=== PATIENT | male | born 1970 | race Caucasian/White ===

== ENCOUNTER 2018-10-03 07:47 | Inpatient (IN) ==
[2018-10-03] MEDS ORDERED: CARDIZEM IV ONE (08:22)
[2018-10-03] MEDS ORDERED: CARDIZEM 100 MG/NS 100 MG/100 ML IVPB IV SCH (08:30)
[2018-10-03 08:38] LABS: BASO# 0.03 X1000 (0.0-0.2); BASO% 0.3 % (0.0-0.8); EOS# 0.02 X1000 (0.0-0.7); EOS% 0.2 % (0.0-10.0); HEMATOCRIT 49.3 % (42.0-52.0); HEMOGLOBIN 17.1 g/dL (14.0-18.0); IMM GRAN# 0.02 X1000 (0.0-0.04); IMM GRAN% 0.2 % (0.0-0.5); LYMPH# 1.54 X1000 (1.2-3.4); LYMPH% 14.9 % (20.5-51.1); MCH 30.8 PG (27-31); MCHC 34.7 g/dL (33-37); MCV 88.7 FL (81-99); MONO# 0.66 X1000 (0.11-0.59); MONO% 6.4 % (1.7-9.3); MPV 9.8 FL (7.4-10.4); NEUT# 8.04 X1000 (1.4-6.5); PLT 308 X1000 (130-400); RBC 5.56 XMIL (4.7-6.1); RDW 12.9 % (11.5-14.5); WBC 10.31 X1000 (4.8-10.8)
[2018-10-03 08:44] LABS: INR 0.93; PROTIME 13.2 Seconds (11.0-16.0); PTT 31.3 Seconds (22.3-41.8)
--- NOTE | 2018-10-03 08:44 | Diag Imaging Result Doc PS360 ---
CHEST-1 VIEW - 10/03/2018 INDICATION: SOB COMPARISON: 10/01/2015 FINDINGS: The lungs are clear. Heart size is normal. No pneumothorax or pleural effusion. IMPRESSION: Negative exam. Electronically signed by Edil Cleary 10/03/2018 8:42 AM
[2018-10-03 08:47] LABS: AGAP 15; ALB/GLOB RATIO 1.1; ALBUMIN 4.3 g/dL (3.5-5.0); ALKALINE PHOSPHATASE 127 U/L (32-122); BUN 15 mg/dL (8-22); CALCIUM 9.7 mg/dL (8.8-10.2); CHLORIDE 101 mmol/L (98-107); CK PROFILE 152 U/L (24-204); COSMO 282; CREATININE 0.7 mg/dL (0.7-1.2); ESTIMATED GFR > 60; GLUCOSE 138 mg/dL (70-104); GOT 17 U/L (10-34); GPT 13 U/L (10-44); POTASSIUM 3.8 mmol/L (3.5-5.1); SODIUM 140 mmol/L (136-145); TCO2 24 mmol/L (25-35); TOTAL BILIRUBIN 0.42 mg/dL (0.20-1.00); TOTAL PROTEIN 8.2 g/dL (6.3-8.3)
[2018-10-03] MEDS ORDERED: CARDIZEM 125 MG in NS 100 ML IV SCH (08:52)
--- NOTE | 2018-10-03 09:05 | PROVIDER DOCUMENTATION ---
HPI-General Adult - General Chief Complaint: Shortness of Breath Stated Complaint: SOB,NEAR SYNCOPE Time Seen by Provider: 10/03/18 08:09 Source: patient Allergies/Adverse Reactions: Patient Allergies Allergy/AdvReac Type Severity Reaction Status Date / Time No Known Allergies Allergy Verified 10/03/18 08:32 - History of Present Illness -Gen Adult Nature of Presenting Problems: The patient was at work this morning when he got very sob and thought he was going to pass out. Location of Pain/Injury: reports: chest (mild pain in his chest with sob) Pain Radiation: reports: no radiation Quality of Pain: reports: fullness, pressure, tightness Severity: reports: mild Onset/Duration: reports: just prior to arrival Timing: reports: still present Context/Activities at Onset: reports: moderate activity Modifying Factors: improves with: nothing. worse with: exercise, movement Associated Symptoms: reports: anxiety, chest pain, dizziness, nausea, shortness of breath, syncope (near). denies: arm pain, back/neck pain, constipation, diaphoresis, diarrhea, fever/chills, sinus congestion/drainage, pain with inspiration, swelling/mass in abdomen, vomiting Similar Symptoms Previously?: No Recently seen or treated by another doctor?: No Review of Systems - Adult - REVIEW OF SYSTEMS - ADULT Constitutional: reports: no symptoms reported Eyes: reports: no symptoms reported Ears, Nose, Mouth & Throat: reports: no symptoms reported Cardiovascular: reports: chest pain, palpitations Respiratory: reports: shortness of breath Gastrointestinal: reports: no symptoms reported Genitourinary: reports: no symptoms reported Musculoskeletal: reports: no symptoms reported Integumentary: reports: no symptoms reported Neurological: reports: no symptoms reported Psychiatric: reports: no symptoms reported Endocrine: reports: no symptoms reported Hematologic/Lymphatic: reports: no symptoms reported Allergic/Immunologic: reports: no symptoms reported All Other Systems: Reviewed and Negative Past History - Adult - PAST MEDICAL HISTORY-ADULT Review of Records: reports: Old Records Reviewed Major Childhood Illnesses: reports: denies history Cardiovascular: reports: A-Fib, HTN Respiratory: reports: denies history Gastrointestinal: reports: denies history Obstetrical/Gynecological: reports: denies history Genitourinary: reports: denies history Musculoskeletal: reports: chronic pain Neurological: reports: Seizures/Epilepsy Endocrine/Immune: reports: denies history Other Conditions: reports: denies history - PRIOR SURGERIES/PROCEDURES Surgical/Procedure History: reports: none - PRIOR HOSPITALIZATIONS Prior Hospitalizations: reports: none - IMMUNIZATION STATUS Childhood Immunizations: See Nurse Assessment Flu Vaccine: See Nurse Assessment - FAMILY HISTORY Family History: reviewed, not pertinent - SOCIAL HISTORY Smoking: cigarettes Physical Exam-General - PHYSICAL EXAM-ADULT Initial Vital Signs Reviewed: Yes - CONSTITUTIONAL General Appearance: alert, mild distress - HEAD, EARS, NOSE, MOUTH & THROAT HENMT: normocephalic/atraumatic - NECK Neck: supple - RESPIRATORY Respiratory: chest non-tender, lungs clear - CARDIOVASCULAR Cardiovascular: tachycardia, irregularly irregular - GASTROINTESTINAL (ABDOMEN) Abdominal Exam: non tender, soft, no organomegaly - MUSCULOSKELETAL Back Exam: normal inspection Extremity: no pedal edema - SKIN Integumentary: normal color, normal turgor - NEUROLOGIC Neurologic: grossly normal - PSYCHIATRIC Psych/Mental Status: oriented x 3 Progress - PLAN OF CARE/RESULTS Progress/Plan/Lab Results: Vital Signs - 8 hr 10/03/18 07:56 Temperature 97.5 F L Pulse Rate 121 H Respiratory Rate 25 H Blood Pressure 132/84 O2 Sat by Pulse Oximetry 97 Laboratory Results - last 24 hr 10/03/18 10/03/18 10/03/18 08:15 08:15 08:15 WBC 10.31 RBC 5.56 Hgb 17.1 Hct 49.3 MCV 88.7 MCH 30.8 MCHC 34.7 RDW Std Deviation 12.9 Plt Count 308 MPV 9.8 Immature Gran % (Auto) 0.2 Neut % (Auto) 78.0 H Lymph % (Auto) 14.9 L Coffey % (Auto) 6.4 Eos % (Auto) 0.2 Baso % (Auto) 0.3 Immature Gran # (Auto) 0.02 Neut # (Auto) 8.04 H Lymph # (Auto) 1.54 Coffey # (Auto) 0.66 H Eos # (Auto) 0.02 Baso # (Auto) 0.03 PT 13.2 INR 0.93 PTT (Actin FS) 31.3 Sodium 140 Potassium 3.8 Chloride 101 Carbon Dioxide 24 L Anion Gap 15 BUN 15 Creatinine 0.7 Estimated GFR/1.73 m2 > 60 BUN/Creatinine Ratio 21 Glucose 138 H Calculated Osmolality 282 Calcium 9.7 Total Bilirubin 0.42 AST 17 ALT 13 Alkaline Phosphatase 127 H Creatine Kinase 152 Troponin T Total Protein 8.2 Albumin 4.3 Globulin 3.9 Albumin/Globulin Ratio 1.1 10/03/18 08:15 WBC RBC Hgb Hct MCV MCH MCHC RDW Std Deviation Plt Count MPV Immature Gran % (Auto) Neut % (Auto) Lymph % (Auto) Coffey % (Auto) Eos % (Auto) Baso % (Auto) Immature Gran # (Auto) Neut # (Auto) Lymph # (Auto) Coffey # (Auto) Eos # (Auto) Baso # (Auto) PT INR PTT (Actin FS) Sodium Potassium Chloride Carbon Dioxide Anion Gap BUN Creatinine Estimated GFR/1.73 m2 BUN/Creatinine Ratio Glucose Calculated Osmolality Calcium Total Bilirubin AST ALT Alkaline Phosphatase Creatine Kinase Troponin T < 0.010 Total Protein Albumin Globulin Albumin/Globulin Ratio Orders Category Date Time Status Cardiac Monitoring DIRECTED Care 10/03/18 08:17 Active IV Insertion ORDERED Care 10/03/18 08:17 Completed If abnormal EKG, order: NOW Care 10/03/18 08:15 Active Notify MD of + Sepsis Screen NOW Care 10/03/18 08:17 Active Notify Physician As Ordered Care 10/03/18 08:17 Active CHEST-1 VIEW [RAD] Stat Exams 10/03/18 08:17 Completed BLOOD CULTURE [BLDCUL] Stat Lab 10/03/18 08:59 Ordered CBC WITH DIFF [HEME] Stat Lab 10/03/18 08:15 Completed CMP [COMPREHENSIVE METABOLIC PANEL] [CHEM] Stat Lab 10/03/18 08:15 Completed Cardiac Profile [CK PROFILE] [SP CHEM] Stat Lab 10/03/18 08:15 Completed LACTATE, PLASMA [CHEM] Lab 10/03/18 08:59 Ordered LACTATE, PLASMA [CHEM] Lab 10/03/18 11:30 Uncollected LACTATE, PLASMA [CHEM] Lab 10/03/18 14:30 Uncollected PROTIME WITH INR [COAG] Stat Lab 10/03/18 08:15 Completed PTT [COAG] Stat Lab 10/03/18 08:15 Completed TROPONIN T Stat Lab 10/03/18 08:15 Completed URINALYSIS W/POSS RFLX CULT [URINALYSIS] Stat Lab 10/03/18 08:17 Uncollected 0.9% Sodium Chloride Inj [Ns] 100 ml Med 10/03/18 08:52 Active Diltiazem [Cardizem] 125 mg IV As Directed mls/hr Diltiazem [Cardizem] Med 10/03/18 08:22 Discontinued 20 mg IV NOW ONE CP/Palp <45 No Known Cardiac Hx Stat Oth 10/03/18 08:14 Ordered Oxygen Device Stat Oth 10/03/18 08:17 Active EKG [EKG] Stat Ther 10/03/18 08:15 Ordered Result Diagrams: 10/03/18 08:15 10/03/18 08:15 - EKG 1 Time of EKG reading by physician:: 08:09 EKG Read and Signed by:: Ana Oliveira EKG Interpretation (*Must complete 3 of following elements*): Abnormal Rate: 148 Rhythm: a-fib [place]: normal - CONSULTS/PCP/HOSPITALIST Notification #1 *Consult/PCP/Hospitalist*: [place] Time Discussed: 09:37 Consult Disposition: Admit Departure - Departure Date of Disposition Decision: 10/03/18 Time of Disposition Decision: 09:35 DIAGNOSIS: New onset atrial fibrillation Disposition: ADMITTED INPATIENT 09 Certified Medical Emergency: Emergent Condition: Good Referrals and Follow-Ups: None,PCP [Primary Care Provider] - - Critical Care Note This patient required my direct & personal management of CC.: No Attestation - Physician/ VIVIAN Attestation The physician spent face to face time with patient:: Yes Advanced Practice Provider documentation review:: Supervising physician onsite and consulted in the evaluation and care of this patient. The physician did have a face to face encounter with the patient.
--- NOTE | 2018-10-03 09:05 | EKG Report ---
Test Performed on : 10/03/2018 08:08:59 AM Test Reason : tachycardia Blood Pressure : / mmHG Vent. Rate : 148 BPM Atrial Rate : 159 BPM P-R Int : 000 ms QRS Dur : 064 ms QT Int : 300 ms P-R-T Axes : 000 024 050 degrees QTc Int : 471 ms Atrial fibrillation. with rapid ventricular response. Abnormal ECG When compared with ECG of 01-OCT-2015 01:16, Atrial fibrillation. has replaced Sinus rhythm. Vent. rate has increased BY 74 BPM Unconfirmed Result
[2018-10-03 09:17] LABS: URINE SOURCE CLEAN CATCH
[2018-10-03 09:40] LABS: BILIRUBIN URINE SMALL (NEGATIVE); BLOOD URINE NEGATIVE (NEGATIVE); COLOR YELLOW; GLUCOSE URINE NEGATIVE (NEGATIVE); KETONE URINE 10 mg/dL (NEGATIVE); LEUKOCYTES URINE NEGATIVE (NEGATIVE); NITRITE URINE NEGATIVE (NEGATIVE); PH URINE 6.5; PROTEIN URINE 70 mg/dL (NEGATIVE); SP GRAVITY URINE 1.023; TURBIDITY URINE CLEAR (CLEAR); UROBILINOGEN URINE 4 mg/dL (NORMAL)
[2018-10-03 09:41] LABS: UR EPITHELIAL CELLS <10 /HPF (<10); URINE BACTERIA NEGATIVE /HPF; URINE RBC <10 /HPF (<10); URINE WBC <10 /HPF (<10)
[2018-10-03] MEDS ORDERED: LANOXIN IV ONE ×2 (10:25→12:30)
[2018-10-03] MEDS ORDERED: TYLENOL PO PRN (10:41)
[2018-10-03] MEDS ORDERED: ZOFRAN IV PRN (10:41)
[2018-10-03] MEDS ORDERED: LOVENOX SUBQ SCH ×2 (10:41→11:15)
--- NOTE | 2018-10-03 11:14 | HISTORY AND PHYSICAL ---
PRIMARY CARE PROVIDER: None. GROUP FITNESS DEPARTMENT HEAD: None. CHIEF COMPLAINT: Shortness of breath, heart racing and dizziness. HISTORY OF PRESENT ILLNESS: Mr. Coates is a 48-year-old male who has carried a past medical history of syncope (2014). We do have unclear documentation of atrial fibrillation prior, however, the patient adamantly denies, GERD as well an admission for a spice overdose back in 2014. 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 He felt his heart racing and whenever he would bend over and stand up, he felt dizzy. He thought he would come to the ED, get a breathing treatment and found that he was in atrial fibrillation with RVR. He was given a Cardizem bolus and placed on a Cardizem drip. He denies any chest pain, any previous episodes of feeling like this. No nausea, vomiting, diarrhea, fever, chills, cough, headache. He also recently reported that he lost his sister and his niece on the way to the in a car crash. Her today is at 15:30. Initially, he was hesitant to stay and after speaking with him, he is going to stay for now. We will go ahead and consult Cardiology and admit him to [facility], continue Cardizem drip. Will do a now dose of digoxin and another dose in 2 hours. PAST MEDICAL HISTORY: 1. Admission back in 2014 for syncope, questionable atrial fibrillation, however, there were no documented findings. 2. Gastroesophageal reflux disease. 3. Spice overdose in the past. PAST SURGICAL HISTORY: Denies. 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 He does smoke cigarettes. Denies any illicit drug use or alcohol. FAMILY HISTORY: Mother and father with coronary artery disease. ALLERGIES: No known drug allergies. HOME MEDICATIONS: None. REVIEW OF SYSTEMS: A 10 point review of systems completely negative except for those mentioned in HPI. PHYSICAL EXAMINATION: VITAL SIGNS: Temperature is 97.5 degrees, heart rate 147, respirations 20, blood pressure 97/76, O2 is 96% on room air. GENERAL: Mr. Coates is a 48-year-old male who is lying in the bed in no acute distress. HEENT: Atraumatic, normocephalic. PERRL. NECK: Supple. Trachea midline. CV: Irregularly irregular. No murmurs, gallops, or rubs noted. RESPIRATORY: Lung sounds clear. He does have bilateral crackles in the bases. ABDOMEN: Soft, nontender, nondistended. Positive bowel sounds 4 quadrants. EXTREMITIES: Negative for edema. NEUROLOGIC: No focal deficits noted. DIAGNOSTIC DATA: EKG shows atrial fibrillation with RVR at 148 beats per minute. Chest x-ray was a negative exam. CBC unremarkable. CMP essentially unremarkable. Urinalysis was negative for bacteria, negative for leukocytes, negative for ketones. He did have 70 urine protein, small bilirubin. ASSESSMENT AND PLAN: 1. Atrial fibrillation with rapid ventricular response, questionable whether this is new onset. The patient reports no previous history. Never seen a tableau report developer. He was placed on a Cardizem drip with bolus. We will admit him to [facility]. Consult Cardiology. Check an echocardiogram. We will do 250 mcg of digoxin now and in 2 hours. Await cardiology's recommendations. Go ahead and check a proBNP. 2. Polysubstance abuse in the past. We will go ahead and check a urine drug screen. 3. Recent stressors. The patient lost a sister recently as well as a niece who was on the way to the . Her is today at 15:30. For now, he has decided to stay, however, he is still hesitant. 4. Further recommendations to follow physician evaluation, laboratory and diagnostic data. Dictated by [facility] [place] for Kait Monteiro MD cc: MD Jeremias Keith MD [facility]
[2018-10-03 11:17] LABS: UR AMPHETAMINES QUAL NONE DETECTED (NONE DETECT); UR BARBITUATES QUAL NONE DETECTED (NONE DETECT); UR BENZODIAZEPIN QUAL NONE DETECTED (NONE DETECT); UR CANNABINOIDS QUAL NONE DETECTED (NONE DETECT); UR COCAINE QUAL NONE DETECTED (NONE DETECT); UR METHADONE QUAL NONE DETECTED (NONE DETECT); UR OPIATES QUAL NONE DETECTED (NONE DETECT); UR OXYCODONE QUAL NONE DETECTED (NONE DETECT); UR PCP QUAL NONE DETECTED (NONE DETECT)
[2018-10-03] MEDS ORDERED: ELIQUIS PO ONE (11:24)
[2018-10-03] MEDS ORDERED: LOPRESSOR PO ONE (11:24)
--- NOTE | 2018-10-03 12:04 | CARDIOLOGY CONSULTATION ---
DATE: 10/03/2018 INDICATION: Atrial fibrillation with rapid ventricular response. HISTORY OF PRESENT ILLNESS: Mr. Coates is a 48-year-old gentleman who presented with shortness of breath. He reported this began at some point this morning. He is not aware of it happening earlier. He has not had any chest pain. He denies any overt palpitations. He is not having any orthopnea. He has no past medical history that he is aware of. He smokes a pack to a pack and half of cigarettes a day. PAST MEDICAL HISTORY: None that the patient is aware of. 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 He does smoke one to one and a half packs per day. FAMILY HISTORY: Significant for hypertension. REVIEW OF SYSTEMS: A 10 system review of systems is negative except for those things mentioned in the HPI. PHYSICAL EXAMINATION: Vital Signs: He is afebrile. Heart rate is in the 120s to 140s. His blood pressure is 101/79. General: He is no acute distress. HEENT: Oropharynx is moist. Poor dentition. Eye examination shows pink conjunctivae and white sclerae. Neck: Examination shows no obvious thyromegaly or thyroid tenderness. Cardiovascular: He sounds to be in an irregularly irregular tachycardic rhythm. He has no murmurs. He has no S3. He has no lower extremity edema. Chest: Examination has coarse breath sounds somewhat diffusely. No increased work of breathing. Abdomen: Soft, nontender, nondistended. He has no obvious organomegaly. Skin Examination: Warm and dry throughout, without any rashes. Neurological: He is moving all extremities well. He has no lateralizing deficits. PERTINENT DATA: His chest x-ray shows no evidence of acute abnormalities. His electrocardiogram shows what appears to be atrial fibrillation, rapid ventricular response. His rate on presentation was 148. His telemetry shows the same. His lab data shows a white count of 10.3, hematocrit 49, platelet count 308,000. His INR is 0.9. His sodium is 140, potassium is 3.8, BUN 15, creatinine 0.7. ProBNP is 119. Cardiac enzymes are negative. ASSESSMENT: Mr. Coates is a 48-year-old gentleman with no previous medical history, who presents with new onset atrial fibrillation. PLAN: The patient will not stay for further evaluations. We will try to set him up for an outpatient CAL, cardioversion tomorrow. I will give him a one time dose of 50 mg of metoprolol now as well as 5 mg of Eliquis. I will have him go over to my office for samples of the Eliquis and we will place him on metoprolol 25 b.i.d. He will go home with orders for CAL, cardioversion to be done tomorrow. I informed the patient that this was not the best option for him but he reports he has a to go to today that he will not miss and he will not stay. We will not abandon the patient and keep him from having any medical care so we will try to come up with the next best option which, at this point, is an outpatient CAL, cardioversion set up for tomorrow with the outpatient medicines provided. cc: Jeremias Salazar MD
[2018-10-03 12:34] VITALS: BP 130/98
--- NOTE | 2018-10-03 20:37 | ECHO REPORT ---
ORDER DATE: 10/03/2018 CLINICAL INDICATIONS: Patient with atrial fibrillation with rapid response. REFERRING PROVIDER: Hospitalist Service. There is an order from Sandra Carey. M-MODE MEASUREMENTS: Left ventricle end diastole: 3.2 cm. Left ventricle end systole: 2.7 cm. Posterior wall: 1.0 cm. Interventricular septum: 1.0 cm. Left atrium: 2.7 cm. Aortic diameter: Not reported here. Inferior vena cava: 1.9 cm. SUMMARY OF 2-DIMENSIONAL IMAGING: The study is really difficult and the primary service needs to understand that this study should probably be repeated when the patient's heart rate is well controlled. 1. Left ventricular function is probably normal. The patient is very tachycardic with an irregular heart rate that goes up to 150 at time. The wall motion is probably preserved. The ejection fraction is probably normal. However, again, this study is totally inappropriate to evaluate for left ventricular systolic function. 2. There is no pericardial effusion. 3. The aortic valve shows sclerosis of the cusps without flor stenosis. 4. The pulmonic valve appears to be grossly unremarkable. 5. The mitral valve also appears to be grossly unremarkable. 6. The tricuspid valve is grossly unremarkable. 7. There is no evidence of mass and no thrombus. CONCLUSIONS: In summary, this echocardiographic study shows that the patient has probably preserved ejection fraction and there is no pericardial effusion and no gross valvular abnormality. This study needs to be repeated when the patient is properly treated and the heart rate is under control. cc: Sebastian Donnelly MD
== END 2018-10-03 13:18 | disposition home or self-care (01) | DRG 310 ==
LOC: ED 07:47 → EDIPHOLD 10:10
PROVIDERS: ATTEND Internal Medicine
CPT/HCPCS: 71010; 71045; 80053; 80101; 80301; 80307; 80324; 80345; 80346; 80353; 80358; 80361; 80365; 81001; 82550; 83605; 83735; 83880; 83992; 84443; 84484; 85025; 85610; 85730; 87040; 93005; 93306; 96365; 96366; 96375; 99285; A9270; G0431; G0434; G0479; G0480